=== PATIENT | female | born 1995 | race Caucasian/White ===

== ENCOUNTER 2018-08-02 10:45 | Emergency (ER) | payer OTHER ==
[2018-08-02] MEDS ORDERED: Lidocaine 1% 30 ML SDV INJECT ONE (10:58)
[2018-08-02] MEDS ORDERED: Take Home: Cephalexin 500 MG Cap, 4 Cap Pack PO ONE (12:22)
[2018-08-02] MEDS ORDERED: Take Home: Acetaminophen/HYDROcodone 325-10 MG, 5 Tab Pack PO ONE (12:22)
[2018-08-02] MEDS ORDERED: Cephalexin 500 MG Cap ONE (12:29)
[2018-08-02] MEDS ORDERED: Diphtheria,Pertussis(Acell),Tetanus Vaccine 0.5 ML Syringe IM ONE (12:30)
--- NOTE | 2018-08-02 19:32 | EDM.PDOC ---
ED HPI GENERAL MEDICAL PROBLEM - General Chief Complaint: Laceration Stated Complaint: HURT PINKY FINGER ON R HAND Time Seen by Provider: 08/02/18 10:50 Source of Information: Reports: Patient History Limitations: Reports: No Limitations - History of Present Illness INITIAL COMMENTS - FREE TEXT/NARRATIVE: Sustained crush injury to distal portion of 5th digit of R hand when she caught it in the tailgate of a pickup. States that her tetanus is due. Denies any injury to other areas. Onset: Today Location: Reports: Upper Extremity, Right Quality: Reports: Sharp Context: Reports: Trauma Right 5-Little finger Pain Score (Numeric/FACES): 10 - Related Data Allergies Allergy/AdvReac Type Severity Reaction Status Date / Time amoxicillin Allergy Hives Verified 08/02/18 11:19 azithromycin [From Zithromax] Allergy Hives Verified 08/02/18 11:19 Penicillins Allergy Hives Verified 08/02/18 11:19 Home Meds: Home Meds Cetirizine HCl [Zyrtec] 10 mg DAILY 08/02/18 [History] Past Medical History [employer] History: Reports: Other (See Below) Other [employer] History: ovarian cyst removed - Past Surgical History HEENT Surgical History: Reports: Oral Surgery, Other (See Below) Other HEENT Surgeries/Procedures: wisdom teeth removed Social & Family History - Tobacco Use Smoking Status *Q: Never Smoker - Alcohol Use Days Per Week of Alcohol Use: 3 Number of Drinks Per Day: 6 Total Drinks Per Week: 18 - Recreational Drug Use Recreational Drug Use: No ED ROS GENERAL - Review of Systems Review Of Systems: See Below Constitutional: Reports: No Symptoms Musculoskeletal: Reports: Hand Pain, Other (pain with severe crush injury to 5th digit of R hand) Skin: Reports: No Symptoms ED EXAM, SKIN/RASH Exam: See Below Extremities: Other (crush injury with almost complete avulsion of the nail noted to 5th digit of R hand. There is a large area of missing nail matrix/soft tissue of the finger, with significant maceration to the tissues of the digit. A large area of tissue with good blood supply is partially avulsed.) ED SKIN PROCEDURES - Laceration/Wound Repair Right Digit - 5th (Baby) Lac/Wound length In cm: 1.5 Appearance: Stellate, Irregular, Moderately Contaminated Distal NVT: Neuro & Vascular Intact, No Tendon Injury Local Anesthesia - Lidocaine (Xylocaine): 1% Plain Local Anesthetic Volume: 5cc Skin Prep: Chlorhexidine (Hibiciens), Saline, Sterile Drape Exploration/Debridement/Repair: Wound Explored, Minimal Debridement, Foreign Material Removed, Multiple Flaps Aligned Closed with: Sutures Suture Size: other (5-0) # of Sutures: 4 Suture Type: Nylon Progress/Comments: Digital block was placed. Pt. hand was prepped and draped in usual sterile fashion. Remaining nail fragments were removed. a total of 4, 5-0 nylon sutures were used to reapproximate the lacerations. There was an area of missing nail matrix noted. This was approximated as best as possible and a single suture was placed in the matrix. The fregment of nail was placed over the sutured nail matrix for protection. Tube gauze dressing was placed, with adaptic and antibiotic ointment. Course - Vital Signs Last Recorded V/S: Last Vital Signs Temp 36.6 C 08/02/18 10:45 Pulse 103 H 08/02/18 10:45 Resp 18 08/02/18 10:45 BP 144/89 H 08/02/18 10:45 Pulse Ox 99 08/02/18 10:45 - Orders/Labs/Meds Orders: Active Orders 24 hr Category Date Time Status Vaccines to be Administered [RC] PER UNIT ROUTINE Care 08/02/18 12:31 Active Fingers Fifth Digit Rt F9 [CR] Stat Exams 08/02/18 11:11 Taken Meds: Medications Discontinued Medications Generic Name Dose Route Start Last Admin Trade Name Armandoq PRN Reason Stop Dose Admin Hydrocodone Bitart/Acetaminophen 1 packet 08/02/18 12:22 08/02/18 12:29 Take Home: Acetaminophen/Hydrocodone 325-10mg PO 08/02/18 12:23 1 packet ONETIME ONE Administration Cephalexin 1 packet 08/02/18 12:22 08/02/18 12:29 Take Home: Cephalexin 500 Mg, 4 Cap Pack PO 08/02/18 12:23 Not Given ONETIME ONE Cephalexin Confirm 08/02/18 12:29 08/02/18 12:35 Keflex Administered 08/02/18 12:30 Not Given Dose 2,000 mg .ROUTE .STK-MED ONE Diphtheria/Tetanus/Acell Pertussis 0.5 ml 08/02/18 12:30 08/02/18 12:38 Adacel IM 08/02/18 12:31 0.5 ml .ONCE ONE Administration Lidocaine HCl 30 ml 08/02/18 10:58 08/02/18 11:07 Xylocaine-Mpf 1% INJECT 08/02/18 10:59 30 ml ONETIME ONE Administration Departure - Departure Time of Disposition: 12:30 Disposition: Home, Self-Care 01 Clinical Impression: Laceration, Crush injury - Discharge Information Instructions: Laceration Care, Adult, Fingernail or Toenail Removal, Adult, Care After Referrals: PCP,Not In Area [Primary Care Provider] - Forms: ED Department Discharge Additional Instructions: Follow-up with hand surgery later this week (probably on or ). I spoke with Dr. Pimentel and he would like to see your finger. The # to the clinic is [phone] Off work 08/03/18 thru 08/05/18 due to injury. If you are able to modify your work activity, you can go to work. Sutures out in 14 days. Kennan 10/325mg 1 every 4-6 hours as needed for pain. Keflex 500mg 4 times a daily for 10 days. - My Orders Last 24 Hours: My Active Orders 08/02/18 11:11 Fingers Fifth Digit Rt F9 [CR] Stat 08/02/18 12:31 Vaccines to be Administered [RC] PER UNIT ROUTINE - Assessment/Plan Last 24 Hours: My Active Orders 08/02/18 11:11 Fingers Fifth Digit Rt F9 [CR] Stat 08/02/18 12:31 Vaccines to be Administered [RC] PER UNIT ROUTINE Plan: Follow-up with hand surgery later this week (probably on or ). I spoke with Dr. Pimentel and he would like to see your finger. The # to the clinic is [phone] Off work 08/03/18 thru 08/05/18 due to injury. If you are able to modify your work activity, you can go to work. Sutures out in 14 days. Kennan 10/325mg 1 every 4-6 hours as needed for pain. Keflex 500mg 4 times a daily for 10 days.
== END 2018-08-02 12:40 | disposition home or self-care (01) ==
LOC: VM.ED 10:45
DX: S67.196A Crushing injury of right little finger, initial encounter (principal); S61.216A Laceration without foreign body of right little finger without damage to nail, initial encounter; Z23 Encounter for immunization; Z88.0 Allergy status to penicillin; Z88.1 Allergy status to other antibiotic agents; W23.0XXA Caught, crushed, jammed, or pinched between moving objects, initial encounter
CPT/HCPCS: 12001; 73140-F9; 90471; 90715; 99283; A9270-GY